=== PATIENT | female | born 1940 | race Caucasian/White ===

== ENCOUNTER 2020-10-28 19:42 | Inpatient (IN) | payer OTHER, MEDICAID, SELFPAY ==
[~2020-10-28] VITALS: Ht 160 cm; Wt 58.1 kg
[2020-10-28 19:42] VITALS: BP_SYST 116
[2020-10-28] MEDS ORDERED: MOM PO (20:20)
[2020-10-28] MEDS ORDERED: ACET325T53 PO (20:20)
[2020-10-28] MEDS ORDERED: MELA2.5T PO (20:20)
[2020-10-28] MEDS ORDERED: ZINC220T4 PO (20:20)
[2020-10-28] MEDS ORDERED: METF-510 PO (20:20)
[2020-10-28] MEDS ORDERED: VITD2000 PO (20:20)
[2020-10-28] MEDS ORDERED: MULT15TA3 PO (20:20)
[2020-10-28] MEDS ORDERED: ASCO500T20 PO (20:20)
[2020-10-28] MEDS ORDERED: INSU100V7 SUBCUT (20:22)
[2020-10-28] MEDS ORDERED: ATEN-41 PO (20:22)
[2020-10-28] MEDS ORDERED: DOCU-144 PO (20:22)
[2020-10-28] MEDS ORDERED: GLIP10TA21 PO (20:22)
[2020-10-28 20:42] LABS: BILIRUBIN,URINE NEGATIVE (NEGATIVE); BLOOD, URINE NEGATIVE (NEGATIVE); CLARITY/URINE SL CLOUDY (CLEAR); COLOR,URINE YELLOW (YELLOW); GLUCOSE,URINE NEGATIVE (NEGATIVE); KETONES,URINE TRACE (NEGATIVE); LEUKOCYTE ESTERASE ,URINE 1+ (NEGATIVE); NITRITE, URINE NEGATIVE (NEGATIVE); PH,URINE 5.5 (5.0-8.0); PROTEIN URINE TRACE (NEGATIVE)
[2020-10-28 20:43] LABS: HEMOGLOBIN 13.6 g/dL (12.0-16.0); MONOCYTES # (AUTO) 0.7 K/uL (0.0-1.0); PLATELET COUNT (AUTO) 177 K/uL (130-430)
[2020-10-28] MEDS ORDERED: NACL 0.9% 1,000 ML IV ONE (20:45)
[2020-10-28 20:54] LABS: ANION GAP 8 (5-15); CALCIUM 11.1 mg/dL (8.4-11.0); CHLORIDE 110 mmol/L (98-107); CREATININE 0.82 mg/dL (0.55-1.30); GLUCOSE 233 mg/dL (70-99); POTASSIUM 3.4 mmol/L (3.5-5.1); SODIUM SERUM 148 mmol/L (136-145); UREA NITROGEN, BLOOD 60 mg/dL (8-21)
[2020-10-28 20:54] LABS: RBC,URINE 0-3 /HPF (0-3)
[2020-10-28 20:55] LABS: BACTERIA,URINE MANY /HPF (None Seen); MUCUS,URINE None Seen /LPF (None Seen)
[2020-10-28 20:59] LABS: EOSINOPHILS % (AUTO) 0.2 % (0.0-4.0); HEMATOCRIT 40.3 % (36-48); LYMPHOCYTES # (AUTO) 0.8 K/uL (1.0-5.5); LYMPHOCYTES % (AUTO) 7.5 % (20.5-51.5); MEAN CORPUSCULAR HEMOGLOBIN 32 pg (27-31); MEAN CORPUSCULAR HGB CONC 34 % (32-36); MEAN CORPUSCULAR VOLUME 95 fL (79.0-98.0); MONOCYTES % (AUTO) 7.3 % (1.7-9.3); NEUTROPHILS # (AUTO) 8.6 K/uL (1.8-7.7); RED BLOOD CELL COUNT(AUTO) 4.25 MIL/uL (4.2-6.2); RED CELL DISTRIBUTION WIDTH 14.3 % (9.0-15.0); WHITE BLOOD COUNT (AUTO) 10.1 K/uL (4.8-10.8)
[2020-10-28 21:00] LABS: ALANINE AMINOTRANSFERASE 20 U/L (12-78); ALBUMIN 2.6 g/dL (3.4-4.8); ASPARTATE AMINOTRANSFERASE 23 U/L (10-37)
[2020-10-28 21:05] LABS: ALCOHOL, BLOOD < 3 mg/dL (<10)
[2020-10-28 21:24] LABS: PROTHROMBIN TIME 10.2 SECS (9.5-12.5)
[2020-10-28 21:27] LABS: BARBITURATE, URINE NEGATIVE (NEG <=200); BENZODIAZEPINE, URINE NEGATIVE (NEG <=150); CANNABINOID, URINE NEGATIVE (NEG <=50); COCAINE, URINE NEGATIVE (NEG <=150); METHAMPHETAMINES SCREEN,URINE NEGATIVE (NEG <=500); OPIATE, URINE NEGATIVE (NEG <=100); PHENCYCLIDINE SCREEN,URINE NEGATIVE (NEG <=25); UR TRICYCLIC ANTIDEPRESSANTS NEGATIVE (NEG <=300); URINE AMPHETAMINE NEGATIVE (NEG <=500); URINE METHADONE NEGATIVE (NEG <=200); URINE OXYCODONE SCREEN NEGATIVE (NEG <=100); URINE PROPOXYPHENE SCREEN NEGATIVE (NEG <=300)
[2020-10-28] MEDS ORDERED: cefTRIAXone 1 GM in D5W 50 ML IV ONE (21:30)
[2020-10-28] MEDS ORDERED: cefTRIAXone 1 GM VIAL ONE (21:34)
[2020-10-28 21:37] LABS: ACETONE, SERUM NEGATIVE (NEGATIVE)
[2020-10-28] MEDS ORDERED: LEVOFLOXACIN 500 MG/D5W 100 ML IV SCH (22:45)
[2020-10-28] MEDS: D5/0.45 NS 1,000 ML IV SCH (23:48)
[2020-10-28 23:52] VITALS: BP_SYST 124
[2020-10-29] MEDS ORDERED: LEVOFLOXACIN 500 MG/D5W 100 ML IV ONE ×2 (00:15→02:12)
[2020-10-29 07:32] LABS: BASOPHILS % (AUTO) 0.2 % (0.0-2.0); EOSINOPHILS % (AUTO) 0.6 % (0.0-4.0); HEMATOCRIT 36.9 % (36-48); HEMOGLOBIN 11.9 g/dL (12.0-16.0); LYMPHOCYTES # (AUTO) 0.7 K/uL (1.0-5.5); LYMPHOCYTES % (AUTO) 9.2 % (20.5-51.5); MEAN CORPUSCULAR HEMOGLOBIN 31 pg (27-31); MEAN CORPUSCULAR HGB CONC 32 % (32-36); MEAN CORPUSCULAR VOLUME 96 fL (79.0-98.0); MONOCYTES # (AUTO) 0.6 K/uL (0.0-1.0); MONOCYTES % (AUTO) 7.9 % (1.7-9.3); NEUTROPHILS # (AUTO) 6.2 K/uL (1.8-7.7); NEUTROPHILS % (AUTO) 82.1 % (40.0-70.0); PLATELET COUNT (AUTO) 155 K/uL (130-430); RED BLOOD CELL COUNT(AUTO) 3.84 MIL/uL (4.2-6.2); RED CELL DISTRIBUTION WIDTH 14.5 % (9.0-15.0); WHITE BLOOD COUNT (AUTO) 7.5 K/uL (4.8-10.8)
[2020-10-29 07:46] LABS: ALANINE AMINOTRANSFERASE 18 U/L (12-78); ALBUMIN 2.2 g/dL (3.4-4.8); ANION GAP 6 (5-15); ASPARTATE AMINOTRANSFERASE 21 U/L (10-37); CHLORIDE 114 mmol/L (98-107); CREATININE 0.55 mg/dL (0.55-1.30); GLUCOSE 211 mg/dL (70-99); POTASSIUM 3.1 mmol/L (3.5-5.1); SODIUM SERUM 150 mmol/L (136-145); TOTAL BILIRUBIN 1.5 mg/dL (0.0-1.0); UREA NITROGEN, BLOOD 47 mg/dL (8-21)
[2020-10-29 08:00] VITALS: BP_SYST 123
[2020-10-29] MEDS ORDERED: POTASSIUM CHLORIDE 40 MEQ in NS 250 ML IV ONE (11:00)
[2020-10-29] MEDS: D5/0.45 NS 1,000 ML IV SCH (12:05)
[2020-10-29 12:15] VITALS: BP_SYST 122
[2020-10-29] MEDS ORDERED: POTASSIUM CHLORIDE 20 MEQ/PKT PACKET PO ONE (13:15)
[2020-10-29 15:29] VITALS: BP_SYST 123
[2020-10-29] MEDS ORDERED: ASPIRIN 81 MG TAB.CHEW PO ONE (15:30)
[2020-10-29 16:17] VITALS: BP_SYST 135
[2020-10-29 19:54] VITALS: BP_SYST 139
[2020-10-29] MEDS: LEVOFLOXACIN 250 MG/D5W 50 ML IV SCH (20:08)
[2020-10-30 00:25] VITALS: BP_SYST 132; BP_SYST 204
[2020-10-30 06:48] LABS: BASOPHILS % (AUTO) 0.3 % (0.0-2.0); EOSINOPHILS # (AUTO) 0.1 K/uL (0.0-0.4); EOSINOPHILS % (AUTO) 2.4 % (0.0-4.0); HEMATOCRIT 35.5 % (36-48); HEMOGLOBIN 11.7 g/dL (12.0-16.0); LYMPHOCYTES # (AUTO) 0.7 K/uL (1.0-5.5); LYMPHOCYTES % (AUTO) 13.5 % (20.5-51.5); MEAN CORPUSCULAR HEMOGLOBIN 32 pg (27-31); MEAN CORPUSCULAR HGB CONC 33 % (32-36); MEAN CORPUSCULAR VOLUME 96 fL (79.0-98.0); MONOCYTES # (AUTO) 0.6 K/uL (0.0-1.0); MONOCYTES % (AUTO) 11.6 % (1.7-9.3); NEUTROPHILS # (AUTO) 3.6 K/uL (1.8-7.7); NEUTROPHILS % (AUTO) 72.2 % (40.0-70.0); PLATELET COUNT (AUTO) 128 K/uL (130-430); RED CELL DISTRIBUTION WIDTH 14.7 % (9.0-15.0); WHITE BLOOD COUNT (AUTO) 4.9 K/uL (4.8-10.8)
[2020-10-30 07:02] LABS: ANION GAP 9 (5-15); CALCIUM 9.7 mg/dL (8.4-11.0); CHLORIDE 114 mmol/L (98-107); CREATININE 0.51 mg/dL (0.55-1.30); GLUCOSE 201 mg/dL (70-99); POTASSIUM 3.5 mmol/L (3.5-5.1); SODIUM SERUM 151 mmol/L (136-145); UREA NITROGEN, BLOOD 23 mg/dL (8-21)
[2020-10-30] MEDS: D5/0.45 NS 1,000 ML IV SCH ×3 (07:39→20:12)
[2020-10-30 08:06] VITALS: BP_SYST 123
[2020-10-30] MEDS: ASPIRIN 81 MG TAB.CHEW PO SCH (08:36)
[2020-10-30 11:31] VITALS: BP_SYST 145
[2020-10-30] MEDS: INSULIN REGULAR, HUMAN 100 UNITS/ML, 10 ML VIAL (humuLIN R) SUBCUT PRN ×3 (11:41→23:16)
[2020-10-30 15:30] VITALS: BP_SYST 147
[2020-10-30 19:35] VITALS: BP_SYST 119
[2020-10-30] MEDS: LEVOFLOXACIN 250 MG/D5W 50 ML IV SCH (20:11)
[2020-10-30 23:54] VITALS: BP_SYST 154
[2020-10-31] MEDS: INSULIN REGULAR, HUMAN 100 UNITS/ML, 10 ML VIAL (humuLIN R) SUBCUT PRN ×4 (05:05→23:10)
[2020-10-31 08:10] VITALS: BP_SYST 138
[2020-10-31] MEDS: ASPIRIN 81 MG TAB.CHEW PO SCH (09:02)
[2020-10-31] MEDS: D5/0.45 NS 1,000 ML IV SCH ×2 (09:13→22:35)
[2020-10-31 11:34] VITALS: BP_SYST 150
[2020-10-31 13:46] LABS: BASOPHILS % (AUTO) 0.5 % (0.0-2.0); EOSINOPHILS # (AUTO) 0.2 K/uL (0.0-0.4); EOSINOPHILS % (AUTO) 3.7 % (0.0-4.0); HEMOGLOBIN 11.6 g/dL (12.0-16.0); LYMPHOCYTES % (AUTO) 16.9 % (20.5-51.5); MEAN CORPUSCULAR HEMOGLOBIN 31 pg (27-31); MEAN CORPUSCULAR HGB CONC 32 % (32-36); MEAN CORPUSCULAR VOLUME 96 fL (79.0-98.0); MONOCYTES # (AUTO) 0.5 K/uL (0.0-1.0); MONOCYTES % (AUTO) 8.2 % (1.7-9.3); NEUTROPHILS # (AUTO) 4.2 K/uL (1.8-7.7); NEUTROPHILS % (AUTO) 70.7 % (40.0-70.0); PLATELET COUNT (AUTO) 136 K/uL (130-430); RED BLOOD CELL COUNT(AUTO) 3.73 MIL/uL (4.2-6.2); RED CELL DISTRIBUTION WIDTH 14.3 % (9.0-15.0); WHITE BLOOD COUNT (AUTO) 5.9 K/uL (4.8-10.8)
[2020-10-31 15:11] LABS: POTASSIUM 3.3 mmol/L (3.5-5.1); SODIUM SERUM 141 mmol/L (136-145)
[2020-10-31 15:12] LABS: ALANINE AMINOTRANSFERASE 49 U/L (12-78); ALBUMIN 2.2 g/dL (3.4-4.8); ANION GAP 7 (5-15); ASPARTATE AMINOTRANSFERASE 55 U/L (10-37); CALCIUM 8.7 mg/dL (8.4-11.0); CHLORIDE 107 mmol/L (98-107); CREATININE 0.58 mg/dL (0.55-1.30); GLUCOSE 253 mg/dL (70-99); TOTAL BILIRUBIN 0.8 mg/dL (0.0-1.0); UREA NITROGEN, BLOOD 17 mg/dL (8-21)
[2020-10-31 15:40] VITALS: BP_SYST 152
[2020-10-31 19:30] VITALS: BP_SYST 143
[2020-10-31] MEDS ORDERED: POTASSIUM CHLORIDE 20 MEQ TAB.PRT.SR PO ONE (20:15)
[2020-10-31] MEDS: LEVOFLOXACIN 250 MG/D5W 50 ML IV SCH (20:23)
[2020-11-01 00:40] VITALS: BP_SYST 131
[2020-11-01] MEDS: D5/0.45 NS 1,000 ML IV SCH ×2 (05:27→12:53)
[2020-11-01] MEDS: INSULIN REGULAR, HUMAN 100 UNITS/ML, 10 ML VIAL (humuLIN R) SUBCUT PRN ×2 (05:27→11:44)
[2020-11-01 08:08] VITALS: BP_SYST 122
[2020-11-01] MEDS: ASPIRIN 81 MG TAB.CHEW PO SCH (08:45)
[2020-11-01 12:00] VITALS: BP_SYST 116
[2020-11-01] MEDS ORDERED: LEVO500P13 IV (13:41)
[2020-11-01 15:00] VITALS: BP_SYST 116
[2020-11-01 15:03] VITALS: BP_SYST 116
== END 2020-11-01 16:21 | DRG 682 ==
LOC: SED 19:42 → STU 22:32
PROVIDERS: ADMIT Internal Medicine; ATTEND Internal Medicine
DX: N17.0 Acute kidney failure with tubular necrosis (principal); E43 Unspecified severe protein-calorie malnutrition; E87.0 Hyperosmolality and hypernatremia; G93.40 Encephalopathy, unspecified; Z66 Do not resuscitate; N30.90 Cystitis, unspecified without hematuria; E86.0 Dehydration; Z20.822 Contact with and (suspected) exposure to COVID-19; E11.9 Type 2 diabetes mellitus without complications; F03.90 Unspecified dementia, unspecified severity, without behavioral disturbance, psychotic disturbance, mood disturbance, and anxiety; I10 Essential (primary) hypertension; N34.2 Other urethritis; E03.9 Hypothyroidism, unspecified; Z68.22 Body mass index [BMI] 22.0-22.9, adult
CPT/HCPCS: 36415; 70450-TC; 71045; 76376; 80048; 80053; 80307; 81000-TC; 82009-TC; 82140-TC; 82550-TC; 82962; 83605; 83735-TC; 83880; 84484; 85025; 85610-TC; 85730-TC; 86140; 87081; 87086; 93005; 96365; G0378; G0482; J0696; J1815; J1956; J3480; J7050